=== PATIENT | male | born 1965 | race Caucasian/White ===

== ENCOUNTER 2017-05-24 12:41 | Emergency (ER) | payer OTHER ==
[2017-05-24] MEDS ORDERED: MORPHINE SULFATE 5 MG/ML PFS IVP ONE ×3 (12:59→14:41)
[2017-05-24] MEDS ORDERED: ONDANSETRON HCL IV 4 MG/2 ML VIAL IVP ONE (13:02)
[2017-05-24] MEDS ORDERED: 0.9 % SODIUM CHLORIDE 1,000 ML BAG IV ONE (13:02)
--- NOTE | 2017-05-24 13:05 | Emergency Department Record ---
History of Present Illness - General Chief Complaint: Fall Injury Stated Complaint: RT RIB PAIN Time Seen by Provider: 05/24/17 12:55 Source: Patient, Family Mode of Arrival: Ambulatory Limitations: No limitations - History of Present Illness Initial Comments: 51 yo male presents after a fall onto a ladder. The ladder is 8 feet. He was not at the top. He landed on his right side. He has right shoulder pain, chest pain, and abdominal pain. No head injury. No extremity pain. He is not on anticoagulants MD Complaint: Fall -: Minutes(s) Fall From: Other (ladder) When Fall Occurred: Just prior to arrival Fall Witnessed: No Place Fall Occurred: Home Loss of Consciousness: None Prolonged Down Time?: No Symptoms Prior to Fall: None Location: Chest, Back, Abdomen Severity: Severe Quality: Aching - [place] Coma Scale Eye Response: (4) Open spontaneously Motor Response: (6) Obeys commands Verbal Response: (5) Oriented [place] Total: 15 - Related Data Home Medications Medication Instructions Recorded Confirmed Last Taken No Home Med [NO HOME MEDS] 05/24/17 05/24/17 Unknown Allergies Allergy/AdvReac Type Severity Reaction Status Date / Time No Known Drug Allergies Allergy Verified 05/24/17 12:52 Review of Systems Constitutional: Denies: Chills, Fever, Weakness Eyes: Denies: Eye discharge, Eye pain, Photophobia, Vision change ENT: Denies: Congestion Respiratory: Denies: Cough Cardiovascular: Reports: Chest pain. Denies: Palpitations, Syncope Endocrine: Denies: Fatigue, Polydipsia, Polyuria Gastrointestinal: Denies: Abdominal pain, Nausea, Vomiting Genitourinary: Denies: Dysuria, Frequency, Hematuria, Urgency Musculoskeletal: Reports: Back pain. Denies: Arthralgia, Joint swelling, Myalgia, Neck pain Skin: Denies: Bruising, Change in color, Rash Neurological: Denies: Confusion, Headache, Tingling, Weakness Psychiatric: Denies: Anxiety Hematological/Lymphatic: Denies: Blood Clots, Easy bleeding, Easy bruising, Swollen glands Past Medical History - SOCIAL HISTORY Smoking Status: Never smoker - RESPIRATORY Hx Respiratory Disorders: No - CARDIOVASCULAR Hx Cardio Disorders: No - NEURO Hx Neuro Disorders: No - GI Hx GI Disorders: No - Hx Genitourinary Disorders: No - ENDOCRINE Hx Endocrine Disorders: No - MUSCULOSKELETAL Hx Musculoskeletal Disorders: No Comment:: PAIN LEFT KNEE - PSYCH Hx Psych Problems: No - HEMATOLOGY/ONCOLOGY Hx Hematology/Oncology Disorders: No Family Medical History Hx Heart Disease: Father *Heart Comment: heart attack Physical Exam - General General Appearance: Alert, Oriented x3, Cooperative, No acute distress Limitations: No limitations - Head Head exam: Atraumatic, Normal inspection - Eye Eye exam: Normal appearance, PERRL. negative: Conjunctival injection, Periorbital swelling - ENT ENT exam: Normal exam Ear exam: Normal external inspection Nasal Exam: Normal inspection Mouth exam: Normal external inspection Teeth exam: Normal inspection Throat exam: Normal inspection - Neck Neck exam: Normal inspection, Full ROM. negative: Tenderness - Respiratory Respiratory exam: Chest wall tenderness, Decreased breath sounds (right). negative: Prolonged expiratory, Respiratory distress, Rhonchi, Stridor, Wheezes - Cardiovascular Cardiovascular Exam: Regular rate, Normal rhythm, Normal heart sounds - GI/Abdominal GI/Abdominal exam: Soft, Tenderness (right flank) - Rectal Rectal exam: Deferred - exam: Deferred - Extremities Extremities exam: Normal inspection, Full ROM, Normal capillary refill. negative: Tenderness - Back Back exam: Reports: Normal inspection, Full ROM. Denies: Muscle spasm, Rash noted, Tenderness - Neurological Neurological exam: Alert, Normal gait, Oriented X3 - Psychiatric Psychiatric exam: Normal affect, Normal mood - Skin Skin exam: Dry, Intact, Normal color, Warm Course - Reevaluation(s) Reevaluation #1: Trauma Called 05/24/17 13:04 Reevaluation #2: The labs were reviewed No acute changes The HCT was read as NO ACUTE INJURY or PROCESS The Cervical Spine was read ad Mild degenerative changes, no fracture or injury The Abdominal CT was read as subcutaneous air with a 6th and 9th rib fracture visible, no organ injury the Chest CT was read at 6th and 9th rib fractures with moderate SQ air and a tiny apical pneumothorax 05/24/17 14:05 Reevaluation #3: I SW Dr Carreno and Dr Ricci of [facility] Trauma ED The patient is accepted for transfer He is stable for transfer The EMS providers were informed of the findings of tiny apical pneumo and are trained to treat if he has respiratory symptoms 05/24/17 14:20 Medical Decision Making - Lab Data Result diagrams: 05/24/17 13:00 05/24/17 13:00 Disposition Disposition: Transfer Clinical Impression: Fracture of ribs, six, closed, Closed rib fracture, Pneumothorax, Subcutaneous emphysema Disposition: Acute Care Hospital Transfer Transfer To: [facility] Reason For Transfer: Trauma consult Accepting Physician: Wai Fernandez Time Discussed w/Accepting Physician: 14:24 Condition: (2) Stable Forms: Patient Portal Access Time of Disposition: 14:16 Quality - Quality Measures Quality Measures: N/A - Blood Pressure Screening View Details: Yes Blood Pressure Classification: Normal BP Reading Systolic Measurement: 114 Diastolic Measurement: 77 Screening for High Blood Pressure: < Normal BP, F/U Not Required > [G8783] Normal BP Follow-up Interventions: No follow-up required
[2017-05-24 13:11] LABS: BASO % 0.4 % (0-6); GRAN % 44.8 % (47-80); HEMATOCRIT 41.9 % (42.0-52.0); HEMOGLOBIN 14.1 gm/dl (14.0-18.0); LYMPH % 43.8 % (16-45); MEAN CELL VOLUME 99.3 fl (81-97); MEAN CORPUSCULAR HEMOGLOBIN 33.4 pg (27-33); MEAN CORPUSCULAR HGB CONC 33.7 g/dl (32-36); MEAN PLATELET VOLUME 8.9 fl (7.4-10.4); PLATELET COUNT 214 K/uL (130-400); RED BLOOD COUNT 4.22 M/uL (4.40-5.70); RED CELL DISTRIBUTION WIDTH 12.6 % (11.5-14.5); WHITE BLOOD COUNT W/O DIFF 7.5 K/uL (4.2-12.2)
[2017-05-24 13:21] LABS: LACTIC ACID 1.8 mmol/L (0.7-2.1)
[2017-05-24 13:23] LABS: BLOOD UREA NITROGEN 12 mg/dL (9-20); CREATININE 0.9 mg/dL (0.66-1.25); EST GLOMERULAR FILTRATION RATE > 60 ml/min; GLUCOSE,RANDOM 127 mg/dL (70-110)
[2017-05-24 13:24] LABS: ALB/GLOB RATIO 1.5 (1.1-1.8); ALBUMIN 4.3 gm/dL (3.5-5.0); ALKALINE PHOSPHATASE 88 U/L (38-126); ALT/SGPT 24 U/L (21-72); AST/SGOT 21 U/L (17-59); TOTAL PROTEIN 7.2 gm/dL (6.3-8.2)
[2017-05-24 14:01] LABS: INR 0.96; PARTIAL THROMBOPLASTIN TIME 26.2 SECONDS (24.5-39.1); PROTHROMBIN TIME (PATIENT) 10.9 SECONDS (9.5-12.1)
--- NOTE | 2017-05-26 07:31 | CT SCAN REPORT ---
DATE: 05/24/2017. EXAM: CT SCAN OF THE BRAIN. HISTORY: Fall. TECHNIQUE: CT of the brain without contrast. COMPARISON: None. FINDINGS: Globes are intact. Paranasal sinuses show polyps of the maxillary sinuses bilaterally. No displaced or depressed skull fracture. No intra- or extraaxial hemorrhage. CT is limited for the evaluation of acute infarct. No CT evidence for large or territorial acute infarct. No mass, mass effect, or midline shift. IMPRESSION: NEGATIVE EXAMINATION. J[facility]BER: [id number] [facility]
--- NOTE | 2017-05-26 07:35 | CT SCAN REPORT ---
DATE: 05/24/2017. EXAM: CT SCAN OF THE CERVICAL SPINE. HISTORY: Fall. TECHNIQUE: Axial CT images of the cervical spine with coronal and sagittal reconstructions. COMPARISON: None. FINDINGS: Evaluation of spinal canal contents is limited due to CT technique. However, vertebral body height and alignment is preserved. Minor multilevel degenerative change. The atlantoaxial space is preserved. Lateral masses are not displaced. Soft tissues are unremarkable. IMPRESSION: MULTILEVEL DEGENERATIVE CHANGE. NEGATIVE FOR ACUTE CERVICAL SPINE ABNORMALITY. [facility]: [id number] [facility]
--- NOTE | 2017-05-26 07:43 | CT SCAN REPORT ---
DATE: 05/24/2017. EXAM: CT OF THE ABDOMEN AND PELVIS. HISTORY: Fall. TECHNIQUE: Axial CT images of the abdomen and pelvis were performed following the IV administration of 96 mL of Omnipaque 300 contrast. Lack of oral contrast limits evaluation of bowel. COMPARISON: None. FINDINGS: Partial visualization of fracture deformities of the right posterior ninth rib and lateral right sixth rib. Adjacent subcutaneous emphysema. The remaining osseous structures are grossly intact. Multiple hepatic cysts are incidentally noted. The spleen, adrenal glands, pancreas, kidneys, and gallbladder are unremarkable. No gross evidence for bowel obstruction. No free air or free fluid. IMPRESSION: 1. MILDLY DISPLACED RIGHT SIXTH AND NINTH RIB FRACTURES. ADJACENT SUBCUTANEOUS EMPHYSEMA. 2. HEPATIC CYSTS. JOB NUMBER: [id number] [facility]
--- NOTE | 2017-05-26 07:57 | CT SCAN REPORT ---
EXAM: CT OF THE CHEST HISTORY: FALL. TECHNIQUE: CT of the chest was performed following IV administration of 100 ml of Omnipaque 300 contrast. Comparison: None. FINDINGS: Tiny right apical pneumothorax with mildly displaced lateral right sixth and posterior right ninth rib fractures. There is adjacent subcutaneous emphysema. The remaining osseous structures of the thorax are intact. The heart and pericardium are unremarkable. Airways are patent. Subcentimeter ground glass nodules of the right upper lobe are present, the largest measures 5 mm. These could be followed nonemergently. The lungs are otherwise clear. No mediastinal or hilar adenopathy. The remaining osseous structures are grossly intact. IMPRESSION: 1. MILDLY DISPLACED LATERAL RIGHT SIXTH AND NINTH RIB FRACTURES. TINY RIGHT APICAL PNEUMOTHORAX. 2. GROUND GLASS NODULES, ABOVE. A FOLLOW-UP EXAM IN SIX MONTHS COULD BE PERFORMED TO INSURE STABILITY. 3. SUBCUTANEOUS EMPHYSEMA ON THE RIGHT, ABOVE. JOB NUMBER: [id number] [facility]
== END 2017-05-24 14:50 | disposition short-term general hospital (02) ==
LOC: ER 12:41
DX: S22.41XA Multiple fractures of ribs, right side, initial encounter for closed fracture (principal); S27.0XXA Traumatic pneumothorax, initial encounter; T79.7XXA Traumatic subcutaneous emphysema, initial encounter; W11.XXXA Fall on and from ladder, initial encounter; Y92.009 Unspecified place in unspecified non-institutional (private) residence as the place of occurrence of the external cause
CPT/HCPCS: 99285 ×2; 96376; 96374; 96375; 83605; 85025; 85730; 85610; 80053; 72125; 71260; 70450; 74177; G0480; Q9967; J2405; J2270; 80320; J7030